=== PATIENT | female | born 1955 | race Hispanic/Latino ===

== ENCOUNTER → 2018-06-22 | Day surgery (SDC) | payer MEDICARE, OTHER ==
[~2018-06-22] MED LIST: AMITIZA24 MCG PO; ASPIRIN81 MG PO; AZOR 5-40 MG T1 EACH PO; BYDUREON2 MG; CLARITIN10 M3; CLONAZEPAM0.5 MG PO; CYCLOBENZAPRINE10 MG PO; EPHEDRINE SULFATE INJ 50 MG/10 ML SYR ONE; FAMOTIDINE40 MG PO; FENTANYL CITRATE/PF 100MCG/2 ML INJ ONE; HUMALOG MI100 UNIT/2 SC; HYDROCODON-ACE1 EAC9 PO; JANUMET XR 50-1 EAC1 PO; JARDIANCE; LIDOCAINE HCL 2% LOCAL INJ 5 ML SDV VIAL INJ ONE; LINZESS; LISINOPRIL-HCT1 EACH; MIDAZOLAM HCL 2 MG/2 ML VIAL ONE; MIRTAZAPINE15 MG PO; NEXIUM; NEXIUM40 MG PO; NOVOLOG 70100 UNITS/; NYSTATIN15 G2 TP; OMEPRAZOLE40 MG; PRISTIQ ER100 MG PO; PRISTIQ100 MG; PROMETHAZINE HC25 M1 PO; PROPOFOL IV EMULSION 10 MG/ML 50 ML VIAL ONE; TRAMADOL; TRAMADOL-ACETAMI1 EA PO; TRAZODONE HCL100 MG PO; TYLENOL WITH C1 EACH PO; Z.0.ANTIVERT25 MG; Z.0.BENAZEPRIL HCL40; Z.0.BYSTOLIC5 MG; Z.0.LOVAZA1 GM; Z.0.LYRICA150 MG; Z.0.NITROSTAT0.4 MG PO; Z.0.NORVASC10 MG; Z.0.PLAVIX75 MG; Z.0.ZOCOR20 MG
--- OUTSIDE RECORDS SUMMARY | 2018-06-22 05:53 | XMS REPORT ---
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 Allergies, Adverse Reactions, Alerts Allergy Name Allergy Type Status Severity Reaction(s) Onset Date Inactive Date Treating Clinician Comments No Known Allergies DA Active U 2018-05-04 00:00:00 No Known Allergies DA Active U 2017-10-10 00:00:00 Medications This patient has no known medications.
[2018-06-22 07:35] VITALS: BP 123/75
== END | disposition home or self-care (01) ==
LOC: OR 05:52
PROVIDERS: ATTEND Internal Medicine Gastroenterology
DX: K92.1 Melena (principal); K64.8 Other hemorrhoids; K25.9 Gastric ulcer, unspecified as acute or chronic, without hemorrhage or perforation; K21.9 Gastro-esophageal reflux disease without esophagitis; Z71.3 Dietary counseling and surveillance; E11.9 Type 2 diabetes mellitus without complications; I25.2 Old myocardial infarction; I10 Essential (primary) hypertension; E66.3 Overweight; Z01.810 Encounter for preprocedural cardiovascular examination; Z79.4 Long term (current) use of insulin; Z68.26 Body mass index [BMI] 26.0-26.9, adult
CPT/HCPCS: 36415; 45378; 82948; 93005; J2001; J2250

== ENCOUNTER 2019-06-08 16:54 | Emergency (ER) | payer MEDICARE, OTHER ==
[~2019-06-08] VITALS: Ht 157.5 cm; Wt 72.6 kg
[~2019-06-08 16:54] MED LIST changes: -EPHEDRINE SULFATE INJ 50 MG/10 ML SYR ONE; -FENTANYL CITRATE/PF 100MCG/2 ML INJ ONE; -LIDOCAINE HCL 2% LOCAL INJ 5 ML SDV VIAL INJ ONE; -MIDAZOLAM HCL 2 MG/2 ML VIAL ONE; -PROPOFOL IV EMULSION 10 MG/ML 50 ML VIAL ONE
--- NOTE | 2019-06-08 18:33 | Diagnostic Imaging Report ---
EXAMINATION: CHEST SINGLE (PORTABLE) INDICATION: ^ Abdominal pain COMPARISON: 09/08/2016. FINDINGS: AP view TUBES and LINES: None. LUNGS: Lungs are well inflated. Bibasilar opacities are seen likely atelectasis. PLEURA: No pleural effusion or pneumothorax. HEART AND MEDIASTINUM: The cardiomediastinal silhouette is unremarkable. BONES AND SOFT TISSUES: No acute osseous lesion. Soft tissues are unremarkable. UPPER ABDOMEN: No free air under the diaphragm. IMPRESSION: Bibasilar opacities are seen likely atelectasis. Signed by: Jayesh Moses MD on 06/08/2019 6:30 PM
[2019-06-08 18:50] LABS: BILIRUBIN,URINE NEGATIVE (NEGATIVE); CLARITY,URINE CLOUDY (CLEAR); COLOR,URINE YELLOW (YELLOW); KETONES,URINE TRACE (NEGATIVE); LEUKOCYTE ESTERASE ,URINE NEGATIVE (NEGATIVE); NITRITE,URINE NEGATIVE (NEGATIVE); PROTEIN,URINE DIPSTICK NEGATIVE (NEGATIVE); URINE UROBILINOGEN 0.2 mg/dL (0.2 - 1)
[2019-06-08 19:09] LABS: BASOPHILS % 0.4 % (0.0-1.0); EOSINOPHILS # (AUTO) 0.1 (0.0-0.4); EOSINOPHILS % 1.6 % (0.0-6.0); HEMATOCRIT 40.1 % (34.2-44.1); HEMOGLOBIN 13.5 g/dL (12.0-16.0); LYMPHOCYTES # (AUTO) 2.2 (1.0-3.2); LYMPHOCYTES % 38.9 % (18.0-39.1); MEAN CORPUSCULAR HEMOGLOBIN 30.1 pg (28-32); MEAN CORPUSCULAR HGB CONC 33.7 g/dL (31-35); MEAN CORPUSCULAR VOLUME 89.5 fL (81-99); MONOCYTES # (AUTO) 0.7 (0.2-0.8); MONOCYTES % 12.1 % (4.4-11.3); NEUTROPHILS # (AUTO) 2.6 (2.1-6.9); NEUTROPHILS % 46.8 % (38.7-80.0); PLATELET COUNT 176 x10e3/uL (140-360); RED BLOOD COUNT 4.48 x10e6/uL (3.6-5.1); RED CELL DISTRIBUTION WIDTH 13.7 % (11.7-14.4)
[2019-06-08 19:12] LABS: BACTERIA,URINE MANY /HPF
[2019-06-08 19:13] LABS: EPITHELIAL CELLS,URINE FEW /LPF
[2019-06-08 19:13] LABS: INR 0.97; PROTHROMBIN TIME 13.4 seconds (11.9-14.5)
[2019-06-08 19:14] LABS: PARTIAL THROMBOPLASTIN TIME 28.4 seconds (23.8-35.5)
[2019-06-08 19:22] LABS: ALANINE AMINOTRANSFERASE 72 IU/L (0-55); ALBUMIN 3.5 g/dL (3.5-5.0); ALBUMIN/GLOBULIN RATIO 0.9 (0.8-2.0); ALKALINE PHOSPHATASE 115 IU/L (40-150); AMYLASE 51 U/L (25-125); ANION GAP 12.6 mmol/L (8-16); BLOOD UREA NITROGEN 16 mg/dL (7-26); BUN/CREATININE RATIO 21 (6-25); CALCIUM 8.9 mg/dL (8.4-10.2); CARBON DIOXIDE 25 mmol/L (22-29); CHLORIDE 102 mmol/L (98-107); CREATINE KINASE 37 IU/L (29-168); CREATININE, SERUM 0.77 mg/dL (0.57-1.11); EST GLOMERULAR FILTRATION RATE > 60 ML/MIN (60-); GLUCOSE 315 mg/dL (74-118); LIPASE 23 U/L (8-78); MAGNESIUM 1.8 MG/DL (1.3-2.1); POTASSIUM 3.6 mmol/L (3.5-5.1); SODIUM 136 mmol/L (136-145)
[2019-06-08] MEDS: SODIUM CHLORIDE 0.9% 1000ML 1,000 ML IV STA (19:27)
[2019-06-08] MEDS: MORPHINE SULFATE 2 MG/ML SYR 1ML IV ONE (19:27)
[2019-06-08] MEDS: ASPIRIN 81 MG CHEW TAB PO ONE (19:27)
[2019-06-08] MEDS: ONDANSETRON HCL 4 MG ORAL DISINTEGRATING TAB PO ONE (19:28)
[2019-06-08] MEDS: ONDANSETRON HCL INJ 2MG/ML 2ML 2 MG/ML VIAL IV ONE (19:28)
[2019-06-08] MEDS ORDERED: IOPAMIDOL 370 MG/ML 200 ML INFUS..BTL INJ ONE (20:21)
[2019-06-08] MEDS ORDERED: SODIUM CHLORIDE 0.9% 50ML 50 ML ONE (20:21)
--- NOTE | 2019-06-08 22:05 | Diagnostic Imaging Report ---
EXAM: CT Abdomen and Pelvis WITH contrast INDICATION: left upper abdominal pain COMPARISON: abdominal CT 05/28/2011. TECHNIQUE: Abdomen and pelvis were scanned utilizing a multidetector helical scanner from the lung base to the pubic symphysis after administration of IV contrast. Coronal and sagittal reformations were obtained. Routine protocol was performed. Scan was performed when during portal venous phase. IV CONTRAST: 100 mL of Isovue 370 ORAL CONTRAST: None COMPLICATIONS: None RADIATION DOSE: Total DLP: 505 mGy*cm Estimated effective dose: (DLP x 0.015 x size factor) mSv CTDIvol has been reviewed. It is below the limits set by the Radiation Protocol Committee (RPC). Dose modulation, iterative reconstruction, and/or weight based adjustment of the mA/kV was utilized to reduce the radiation dose to as low as reasonably achievable. FINDINGS: LINES and TUBES: None. LOWER THORAX: Coronary artery calcifications. Mild cardiomegaly. HEPATOBILIARY: No focal hepatic lesions. No biliary ductal dilation. GALLBLADDER: There are cholecystectomy clips. SPLEEN: No splenomegaly. PANCREAS: No focal masses or ductal dilatation. ADRENALS: No adrenal nodules KIDNEYS/URETERS: Kidneys enhance symmetrically. No hydronephrosis. No cystic or solid mass lesions. Subtle increased size of a 2.4 cm left renal cyst. No stones. GI TRACT: No abnormal distention, wall thickening, or evidence of bowel obstruction. Appendix is normal. PELVIC ORGANS/BLADDER: Hysterectomy. No adnexal masses. LYMPH NODES: No lymphadenopathy. VESSELS: There is mild atherosclerotic disease in the aorta and major arterial branches. PERITONEUM / RETROPERITONEUM: No free air or fluid. BONES: There are degenerative changes in the lumbar spine. SOFT TISSUES: Ill-defined soft tissue densities in the right breast. IMPRESSION: 1. No acute CT abnormalities in the abdomen or pelvis. 2. Coronary artery calcific atherosclerosis. Mild cardiomegaly. 3. Soft tissue densities in the right breast. Recommend nonemergent dedicated mammographic evaluation. Signed by: Arnol Tobias DO on 06/08/2019 10:01 PM
[2019-06-08] MEDS ORDERED: CEFDINIR300 MG PO (22:08)
[2019-06-08] MEDS ORDERED: ULTRAM50 MG PO (22:08)
[2019-06-08] MEDS: MORPHINE SULFATE 2 MG/ML SYR 1ML IV STA (22:09)
[2019-06-08 22:39] VITALS: BP 132/69
== END 2019-06-08 22:40 | disposition home or self-care (01) ==
LOC: ER 16:54
DX: R10.12 Left upper quadrant pain (principal); N30.90 Cystitis, unspecified without hematuria; I10 Essential (primary) hypertension; E11.9 Type 2 diabetes mellitus without complications; E78.5 Hyperlipidemia, unspecified; F41.9 Anxiety disorder, unspecified; K21.9 Gastro-esophageal reflux disease without esophagitis; Z86.73 Personal history of transient ischemic attack (TIA), and cerebral infarction without residual deficits
CPT/HCPCS: 36415; 71045; 74177; 80053; 81001; 82150; 82550; 82553; 83690; 83735; 84484; 85025; 85610; 85730; 93005; 99284; J2270; J2405; J7030; Q9967

== ENCOUNTER 2020-07-17 15:08 | Inpatient (IN) | payer MEDICARE, OTHER ==
[~2020-07-17] VITALS: Ht 157.5 cm; Wt 72.6 kg
[~2020-07-17 15:08] MED LIST changes: +CEFDINIR300 MG PO; +ULTRAM50 MG PO
[2020-07-17] MEDS ORDERED: SODIUM CHLORIDE 0.9% 1000ML 1,000 ML IV STA ×2 (15:47→17:14)
[2020-07-17] MEDS ORDERED: ACETAMINOPHEN 325 MG TAB PO NR (16:00)
[2020-07-17 16:17] LABS: CLARITY,URINE HAZY (CLEAR); COLOR,URINE STRAW (YELLOW); KETONES,URINE NEGATIVE (NEGATIVE); LEUKOCYTE ESTERASE ,URINE SMALL (NEGATIVE); NITRITE,URINE POSITIVE (NEGATIVE); PROTEIN,URINE DIPSTICK NEGATIVE (NEGATIVE); URINE UROBILINOGEN 0.2 mg/dL (0.2 - 1)
[2020-07-17 16:35] LABS: BACTERIA,URINE MANY /HPF; RBC,URINE 0-5 /HPF (0-5); RENAL EPITHELIAL CELLS,URINE RARE; TRANSITIONAL EPI CELLS,URINE RARE
[2020-07-17 16:59] LABS: BASOPHILS # (AUTO) 0.1 (0.0-0.1); BASOPHILS % 0.7 % (0.0-1.0); EOSINOPHILS % 0.2 % (0.0-6.0); LYMPHOCYTES # (AUTO) 0.4 (1.0-3.2); LYMPHOCYTES % 2.4 % (18.0-39.1); MEAN CORPUSCULAR HEMOGLOBIN 29.8 pg (28-32); MEAN CORPUSCULAR HGB CONC 33.3 g/dL (31-35); MEAN CORPUSCULAR VOLUME 89.4 fL (81-99); MONOCYTES # (AUTO) 0.4 (0.2-0.8); MONOCYTES % 2.3 % (4.4-11.3); NEUTROPHILS # (AUTO) 16.2 (2.1-6.9); NEUTROPHILS % 89.2 % (38.7-80.0); PLATELET COUNT 220 x10e3/uL (140-360); RED BLOOD COUNT 4.36 x10e6/uL (3.6-5.1); RED CELL DISTRIBUTION WIDTH 14.6 % (11.7-14.4)
[2020-07-17 17:09] LABS: INR 1.01; PROTHROMBIN TIME 13.9 seconds (11.9-14.5)
[2020-07-17 17:10] LABS: PARTIAL THROMBOPLASTIN TIME 39.5 seconds (23.8-35.5)
[2020-07-17] MEDS ORDERED: PIPER-TAZ 3.375 GM 50 ML IV STA (17:14)
[2020-07-17 17:20] LABS: ALANINE AMINOTRANSFERASE 33 IU/L (0-55); ALBUMIN 2.6 g/dL (3.5-5.0); ALBUMIN/GLOBULIN RATIO 0.5 (0.8-2.0); ALKALINE PHOSPHATASE 221 IU/L (40-150); AMYLASE 44 U/L (25-125); ANION GAP 15.1 mmol/L (8-16); BLOOD UREA NITROGEN 8 mg/dL (7-26); BUN/CREATININE RATIO 11 (6-25); CALCIUM 8.8 mg/dL (8.4-10.2); CARBON DIOXIDE 22 mmol/L (22-29); CHLORIDE 100 mmol/L (98-107); CREATINE KINASE 23 IU/L (29-168); EST GLOMERULAR FILTRATION RATE > 60 ML/MIN (60-); GLUCOSE 111 mg/dL (74-118); LIPASE 24 U/L (8-78); MAGNESIUM 1.6 MG/DL (1.3-2.1); POTASSIUM 4.1 mmol/L (3.5-5.1); SODIUM 133 mmol/L (136-145)
[2020-07-17 17:24] LABS: B-TYPE NATRIURETIC PEPTIDE2 80.6 pg/mL (0-100)
[2020-07-17] MEDS ORDERED: PIPER-TAZ 3.375 GM 50 ML ONE (17:34)
[2020-07-17] MEDS ORDERED: IOPAMIDOL 370 MG/ML 200 ML INFUS..BTL INJ ONE (17:35)
[2020-07-17 17:58] LABS: LYMPHOCYTES % (MANUAL) 2 % (19-48); MONOCYTES % (MANUAL) 2 % (3.4-9.0); NEUTROPHILS % (MANUAL) 96 % (40-74); PLATELET ESTIMATE ADEQUATE; PLATELET MORPHOLOGY COMMENT FEW LARGE; RBC MORPHOLOGY COMMENT NORMAL
[2020-07-17] MEDS ORDERED: DEXTROSE 50% SYRINGE 50 ML IV PRN ×2 (19:15→23:00)
[2020-07-17] MEDS ORDERED: SODIUM CHLORIDE 0.9% 1000ML 1,000 ML IV SCH (19:15)
[2020-07-17] MEDS ORDERED: ONDANSETRON HCL INJ 2MG/ML 2ML 2 MG/ML VIAL IV PRN (19:15)
[2020-07-17] MEDS: INSULIN REGULAR, HUMAN 100 UNIT/1 ML 3ML VIAL SQ SCH (21:00)
[2020-07-17] MEDS ORDERED: KETOROLAC TROMETHAMINE 30 MG/ML VIAL IV STA (21:40)
[2020-07-17] MEDS ORDERED: HYDRALAZINE HCL 20 MG/ML VIAL IV PRN (23:00)
[2020-07-17] MEDS ORDERED: INSULIN GLARGINE 100 UNITS/ML VIAL SQ ONE (23:00)
[2020-07-17] MEDS ORDERED: CLONAZEPAM 0.5 MG TAB PO PRN (23:00)
[2020-07-17] MEDS ORDERED: IVERMECTIN 3MG TABLET 3 MG TABLET PO SCH (23:00)
[2020-07-17] MEDS ORDERED: PREDNISONE 20 MG TAB PO ONE (23:00)
[2020-07-17] MEDS: PIPER-TAZ 3.375 GM 50 ML IV SCH (23:22)
[2020-07-18] VITALS (8 sets, daily range): BP systolic 107–130; BP diastolic 65–81
[2020-07-18] MEDS: TRAMADOL HCL 50 MG TAB PO PRN ×2 (04:18→13:16)
[2020-07-18] MEDS: PIPER-TAZ 3.375 GM 50 ML IV SCH ×3 (05:11→17:01)
[2020-07-18 05:52] LABS: BASOPHILS # (AUTO) 0.1 (0.0-0.1); BASOPHILS % 0.6 % (0.0-1.0); EOSINOPHILS # (AUTO) 0.1 (0.0-0.4); EOSINOPHILS % 0.3 % (0.0-6.0); HEMATOCRIT 39.9 % (34.2-44.1); HEMOGLOBIN 12.8 g/dL (12.0-16.0); LYMPHOCYTES # (AUTO) 1.2 (1.0-3.2); LYMPHOCYTES % 5.7 % (18.0-39.1); MEAN CORPUSCULAR HEMOGLOBIN 29.7 pg (28-32); MEAN CORPUSCULAR HGB CONC 32.1 g/dL (31-35); MEAN CORPUSCULAR VOLUME 92.6 fL (81-99); MONOCYTES # (AUTO) 0.6 (0.2-0.8); MONOCYTES % 2.7 % (4.4-11.3); NEUTROPHILS # (AUTO) 17.4 (2.1-6.9); NEUTROPHILS % 87.1 % (38.7-80.0); PLATELET COUNT 239 x10e3/uL (140-360); RED BLOOD COUNT 4.31 x10e6/uL (3.6-5.1); RED CELL DISTRIBUTION WIDTH 14.8 % (11.7-14.4)
[2020-07-18 06:54] LABS: ALANINE AMINOTRANSFERASE 29 IU/L (0-55); ALBUMIN 2.4 g/dL (3.5-5.0); ALBUMIN/GLOBULIN RATIO 0.4 (0.8-2.0); ALKALINE PHOSPHATASE 170 IU/L (40-150); ANION GAP 14.7 mmol/L (8-16); BLOOD UREA NITROGEN 9 mg/dL (7-26); BUN/CREATININE RATIO 13 (6-25); CALCIUM 8.7 mg/dL (8.4-10.2); CARBON DIOXIDE 21 mmol/L (22-29); CHLORIDE 104 mmol/L (98-107); EST GLOMERULAR FILTRATION RATE > 60 ML/MIN (60-); GLUCOSE 244 mg/dL (74-118); POTASSIUM 4.7 mmol/L (3.5-5.1); SODIUM 135 mmol/L (136-145)
[2020-07-18 07:28] LABS: FERRITIN 278.41 ng/mL (4.63-204.00)
[2020-07-18] MEDS: INSULIN REGULAR, HUMAN 100 UNIT/1 ML 3ML VIAL SQ SCH ×8 (07:30→21:00)
[2020-07-18] MEDS: PANTOPRAZOLE SOD 40 MG TABEC PO SCH (08:39)
[2020-07-18] MEDS: LISINOPRIL 20 MG TAB PO SCH (08:39)
[2020-07-18] MEDS: ASCORBIC ACID 500 MG TAB PO SCH ×2 (08:40→17:01)
[2020-07-18] MEDS: ZINC SULFATE 220 MG CAP PO SCH (08:40)
[2020-07-18] MEDS ORDERED: INSULIN GLARGINE 100 UNITS/ML VIAL SQ SCH (09:00)
[2020-07-18] MEDS: ACETAMINOPHEN 325 MG TAB PO PRN (09:10)
[2020-07-18] MEDS: INSULIN GLARGINE 100 UNITS/ML VIAL SQ SCH ×2 (09:16→17:28)
[2020-07-18 15:26] LABS: CREATINE KINASE MB 1.1 ng/mL (0-5.0)
[2020-07-18] MEDS: ENOXAPARIN SOD INJ 40 MG/0.4 ML SYR SC SCH (17:01)
[2020-07-18] MEDS: MIRTAZAPINE 15 MG TAB PO SCH (22:39)
[2020-07-18] MEDS: TRAZODONE HCL 50 MG TAB PO SCH (22:39)
[2020-07-19] VITALS (8 sets, daily range): BP systolic 90–145; BP diastolic 53–82
[2020-07-19] MEDS: PIPER-TAZ 3.375 GM 50 ML IV SCH ×5 (00:12→23:51)
[2020-07-19] MEDS: INSULIN REGULAR, HUMAN 100 UNIT/1 ML 3ML VIAL SQ SCH ×8 (07:30→20:53)
[2020-07-19] MEDS: INSULIN GLARGINE 100 UNITS/ML VIAL SQ SCH ×2 (09:00→18:18)
[2020-07-19] MEDS: PANTOPRAZOLE SOD 40 MG TABEC PO SCH (09:16)
[2020-07-19] MEDS: LISINOPRIL 20 MG TAB PO SCH (09:16)
[2020-07-19] MEDS: ASCORBIC ACID 500 MG TAB PO SCH ×2 (09:16→17:07)
[2020-07-19] MEDS: ZINC SULFATE 220 MG CAP PO SCH (09:16)
[2020-07-19] MEDS: TRAMADOL HCL 50 MG TAB PO PRN ×2 (09:17→17:53)
[2020-07-19] MEDS: ENOXAPARIN SOD INJ 40 MG/0.4 ML SYR SC SCH (17:07)
[2020-07-19] MEDS: TRAZODONE HCL 50 MG TAB PO SCH (20:53)
[2020-07-19] MEDS: MIRTAZAPINE 15 MG TAB PO SCH (20:53)
[2020-07-19] MEDS: ACETAMINOPHEN 325 MG TAB PO PRN (21:37)
[2020-07-20] VITALS (8 sets, daily range): BP systolic 94–140; BP diastolic 56–97
[2020-07-20] MEDS: PIPER-TAZ 3.375 GM 50 ML IV SCH ×3 (06:09→17:00)
[2020-07-20] MEDS: INSULIN REGULAR, HUMAN 100 UNIT/1 ML 3ML VIAL SQ SCH ×4 (07:30→21:25)
[2020-07-20] MEDS: PANTOPRAZOLE SOD 40 MG TABEC PO SCH (08:55)
[2020-07-20] MEDS: ZINC SULFATE 220 MG CAP PO SCH (08:55)
[2020-07-20] MEDS: LISINOPRIL 20 MG TAB PO SCH (08:55)
[2020-07-20] MEDS: ASCORBIC ACID 500 MG TAB PO SCH ×2 (08:55→16:17)
[2020-07-20] MEDS: INSULIN GLARGINE 100 UNITS/ML VIAL SQ SCH ×2 (10:00→17:00)
[2020-07-20] MEDS: TRAMADOL HCL 50 MG TAB PO PRN ×2 (16:17→22:18)
[2020-07-20] MEDS: ENOXAPARIN SOD INJ 40 MG/0.4 ML SYR SC SCH (16:17)
[2020-07-20 20:34] LABS: MAGNESIUM 1.8 MG/DL (1.3-2.1)
[2020-07-20] MEDS: TRAZODONE HCL 50 MG TAB PO SCH (21:24)
[2020-07-20] MEDS: MIRTAZAPINE 15 MG TAB PO SCH (21:25)
[2020-07-21] VITALS (7 sets, daily range): BP systolic 124–152; BP diastolic 72–86
[2020-07-21] MEDS: PIPER-TAZ 3.375 GM 50 ML IV SCH ×3 (05:51→12:17)
[2020-07-21 06:36] LABS: CHOL/HDL RATIO 7.5 (3.0-3.6)
[2020-07-21] MEDS: INSULIN REGULAR, HUMAN 100 UNIT/1 ML 3ML VIAL SQ SCH ×3 (07:30→17:18)
[2020-07-21] MEDS: INSULIN GLARGINE 100 UNITS/ML VIAL SQ SCH ×2 (08:35→17:19)
[2020-07-21] MEDS: PANTOPRAZOLE SOD 40 MG TABEC PO SCH (09:05)
[2020-07-21] MEDS: ZINC SULFATE 220 MG CAP PO SCH (09:05)
[2020-07-21] MEDS: LISINOPRIL 20 MG TAB PO SCH (09:05)
[2020-07-21] MEDS: ASCORBIC ACID 500 MG TAB PO SCH ×2 (09:05→17:17)
[2020-07-21 13:31] LABS: BASOPHILS % 0.4 % (0.0-1.0); EOSINOPHILS # (AUTO) 0.2 (0.0-0.4); EOSINOPHILS % 2.3 % (0.0-6.0); HEMATOCRIT 39.4 % (34.2-44.1); HEMOGLOBIN 12.6 g/dL (12.0-16.0); LYMPHOCYTES # (AUTO) 2.5 (1.0-3.2); LYMPHOCYTES % 26.6 % (18.0-39.1); MEAN CORPUSCULAR HEMOGLOBIN 30.1 pg (28-32); MEAN CORPUSCULAR VOLUME 94.3 fL (81-99); MONOCYTES # (AUTO) 1.2 (0.2-0.8); MONOCYTES % 12.7 % (4.4-11.3); NEUTROPHILS # (AUTO) 5.3 (2.1-6.9); NEUTROPHILS % 56.7 % (38.7-80.0); PLATELET COUNT 291 x10e3/uL (140-360); RED BLOOD COUNT 4.18 x10e6/uL (3.6-5.1); RED CELL DISTRIBUTION WIDTH 15.2 % (11.7-14.4)
[2020-07-21] MEDS ORDERED: PREDNISONE20 MG PO (15:03)
[2020-07-21] MEDS ORDERED: KEFLEX500 MG PO (15:03)
[2020-07-21] MEDS ORDERED: CEFTRIAXONE SOD 2 GM/NS 100 ML 100 ML IV SCH (17:00)
[2020-07-21] MEDS: ENOXAPARIN SOD INJ 40 MG/0.4 ML SYR SC SCH (17:17)
[2020-07-22] MEDS ORDERED: BALSAM PERU/CASTOR OIL 60 GM OINT...G. TP SCH (09:00)
== END 2020-07-21 22:38 | disposition home or self-care (01) | DRG 871 ==
LOC: ER 15:21 → ERHOLD 19:24 → MED/SURG2 22:17
PROVIDERS: ADMIT Internal Medicine; ATTEND Internal Medicine
DX: A41.51 Sepsis due to Escherichia coli [E. coli] (principal); U07.1 COVID-19; J12.82 Pneumonia due to coronavirus disease 2019; N10 Acute pyelonephritis; E87.2 Acidosis; E87.1 Hypo-osmolality and hyponatremia; R65.20 Severe sepsis without septic shock; E11.9 Type 2 diabetes mellitus without complications; E78.5 Hyperlipidemia, unspecified; I11.0 Hypertensive heart disease with heart failure; I50.9 Heart failure, unspecified; Z86.73 Personal history of transient ischemic attack (TIA), and cerebral infarction without residual deficits; R09.02 Hypoxemia; K21.9 Gastro-esophageal reflux disease without esophagitis; E88.09 Other disorders of plasma-protein metabolism, not elsewhere classified; D72.810 Lymphocytopenia; N28.1 Cyst of kidney, acquired; F41.9 Anxiety disorder, unspecified; F32.9 Major depressive disorder, single episode, unspecified; Z79.4 Long term (current) use of insulin
CPT/HCPCS: 36415; 71045; 74177; 80053; 80061; 81001; 82150; 82550; 82553; 82728; 82948; 83036; 83605; 83615; 83690; 83735; 83880; 84132; 84484; 85025; 85610; 85730; 86140; 87040; 87071; 87086; 87186; 87205; 87400; 93005; 99251; 99284; J0696; J1650; J1815; J1817; J1885; J2543; J7030; J7512; Q9967; U0002

== ENCOUNTER 2022-03-13 22:03 | Emergency (ER) | payer MEDICARE, OTHER ==
[~2022-03-13] VITALS: Ht 157.5 cm; Wt 64.9 kg
[~2022-03-13 22:03] MED LIST changes: +KEFLEX500 MG PO; +PREDNISONE20 MG PO
[2022-03-13 22:53] LABS: CLARITY,URINE CLOUDY (CLEAR); COLOR,URINE YELLOW (YELLOW); KETONES,URINE TRACE (NEGATIVE); LEUKOCYTE ESTERASE ,URINE NEGATIVE (NEGATIVE); NITRITE,URINE NEGATIVE (NEGATIVE); PROTEIN,URINE DIPSTICK NEGATIVE (NEGATIVE); URINE UROBILINOGEN 0.2 mg/dL (0.2 - 1)
[2022-03-13] MEDS ORDERED: KETOROLAC TROMETHAMINE 30 MG/ML VIAL IM ONE (23:00)
[2022-03-13 23:08] LABS: WBC,URINE (MAN) 21-50 /HPF (0-5)
[2022-03-13 23:09] LABS: BACTERIA,URINE MANY /HPF; EPITHELIAL CELLS,URINE FEW /LPF; YEAST,URINE MANY
[2022-03-13] MEDS ORDERED: KETOROLAC TROMETHAMINE 30 MG/ML VIAL ONE (23:14)
[2022-03-13] MEDS ORDERED: CEFDINIR 300 MG CAP PO ONE (23:30)
== END 2022-03-13 23:47 | disposition home or self-care (01) ==
LOC: ER 22:06
DX: R30.0 Dysuria (principal); N39.0 Urinary tract infection, site not specified; I10 Essential (primary) hypertension; E11.9 Type 2 diabetes mellitus without complications; I50.9 Heart failure, unspecified; F41.9 Anxiety disorder, unspecified; E78.5 Hyperlipidemia, unspecified; K21.9 Gastro-esophageal reflux disease without esophagitis; Z86.73 Personal history of transient ischemic attack (TIA), and cerebral infarction without residual deficits
CPT/HCPCS: 81001; 87086; 99283; J1885

== ENCOUNTER 2022-06-19 20:11 | Emergency (ER) | payer MEDICARE, OTHER ==
[~2022-06-19] VITALS: Ht 157.5 cm; Wt 64.9 kg
[2022-06-19 21:07] LABS: BASOPHILS % 0.1 % (0.0-1.0); EOSINOPHILS # (AUTO) 0.3 (0.0-0.4); EOSINOPHILS % 3.3 % (0.0-6.0); HEMATOCRIT 45.5 % (34.2-44.1); HEMOGLOBIN 14.6 g/dL (12.0-16.0); LYMPHOCYTES # (AUTO) 2.1 (1.0-3.2); LYMPHOCYTES % 27.3 % (18.0-39.1); MEAN CORPUSCULAR HGB CONC 32.1 g/dL (31-35); MEAN CORPUSCULAR VOLUME 93.4 fL (81-99); MONOCYTES % 13.7 % (4.4-11.3); NEUTROPHILS # (AUTO) 4.2 (2.1-6.9); NEUTROPHILS % 54.9 % (38.7-80.0); PLATELET COUNT 174 x10e3/uL (140-360); RED BLOOD COUNT 4.87 x10e6/uL (3.6-5.1); RED CELL DISTRIBUTION WIDTH 13.2 % (11.7-14.4)
[2022-06-19 21:29] LABS: ALBUMIN 3.6 g/dL (3.5-5.0); ALBUMIN/GLOBULIN RATIO 0.8 (0.8-2.0); ANION GAP 13.8 mmol/L (8-16); CALCIUM 8.6 mg/dL (8.4-10.2); CREATININE, SERUM 0.78 mg/dL (0.57-1.11); POTASSIUM 3.8 mmol/L (3.5-5.1)
[2022-06-19 21:36] LABS: CREATINE KINASE MB 1.6 ng/mL (0-5.0)
[2022-06-19] MEDS ORDERED: BENZONATATE200 MG PO (22:25)
== END 2022-06-20 01:19 | disposition home or self-care (01) ==
LOC: ER 20:14
DX: R05.9 Cough, unspecified (principal); J21.0 Acute bronchiolitis due to respiratory syncytial virus; E11.65 Type 2 diabetes mellitus with hyperglycemia; I10 Essential (primary) hypertension; I50.9 Heart failure, unspecified; E78.5 Hyperlipidemia, unspecified; K21.9 Gastro-esophageal reflux disease without esophagitis; F41.9 Anxiety disorder, unspecified; Z20.822 Contact with and (suspected) exposure to COVID-19; Z86.73 Personal history of transient ischemic attack (TIA), and cerebral infarction without residual deficits
CPT/HCPCS: 36415; 71045; 80053; 82550; 82553; 83880; 84484; 85025; 93005; 99283; U0002